=== PATIENT | female | born 1970 | race Caucasian/White ===

== ENCOUNTER 2018-09-25 16:32 | Emergency (ER) | payer MEDICAID ==
[2018-09-25] MEDS ORDERED: Ondansetron 4 MG Tab.DIS PO ONE (16:33)
--- NOTE | 2018-09-25 17:28 | EDM.PDOC ---
ED HPI GENERAL MEDICAL PROBLEM - General Chief Complaint: Abdominal Pain Stated Complaint: STOMACH ISSUES Time Seen by Provider: 09/25/18 16:32 Source of Information: Reports: Patient, Family History Limitations: Reports: No Limitations - History of Present Illness INITIAL COMMENTS - FREE TEXT/NARRATIVE: 48 y.o.w.f with a h/o appendectomy, Hysterectomy, Cholecystectomy, came to the ed with gen abd. pain. No N/V. No trauma. BP 155/100 RR 18 Pulse ox 100% Temp 36.8 Pulse 115 Onset Date: 09/16/18 Onset Time: 08:00 Duration: Day(s):, Getting Worse, Intermittent Location: Reports: Abdomen Quality: Reports: Burning, Dull, Pressure Severity: Moderate Improves with: Reports: None Worsens with: Reports: None Context: Reports: Other (multiple abd. surgeries) Associated Symptoms: Reports: No Other Symptoms Abdomen Pain Score (Numeric/FACES): 7 - Related Data Allergies Allergy/AdvReac Type Severity Reaction Status Date / Time amoxicillin Allergy Rash Verified 09/25/18 18:38 Home Meds: Home Meds Fluticasone/Salmeterol [Advair 250-50] 1 puff INH BID 08/16/14 [History] Follett Carbonate 300 mg PO BID 08/16/14 [History] Losartan/Hydrochlorothiazide [Losartan-HCTZ 100-25 MG] 1 each PO DAILY 08/16/14 [History] Omeprazole 40 mg PO DAILY 08/16/14 [History] predniSONE [Prednisone] 10 mg PO DAILY 08/16/14 [History] tiZANidine HCl [Tizanidine HCl] 4 mg PO BEDTIME PRN 08/16/14 [History] Isosorbide Mononitrate [Imdur] 30 mg PO DAILY #30 tab.er 08/17/14 [Rx] Metoprolol Succinate [Toprol XL] 25 mg PO DAILY #30 tab.sr.24h 08/17/14 [Rx] Nitroglycerin [Nitrostat] 0.4 mg SL Q5M PRN #20 tab.sl 08/17/14 [Rx] ED ROS GENERAL - Review of Systems Review Of Systems: See Below Constitutional: Reports: No Symptoms HEENT: Reports: No Symptoms Respiratory: Reports: No Symptoms Cardiovascular: Reports: No Symptoms Endocrine: Reports: No Symptoms GI/Abdominal: Reports: Abdominal Pain : Reports: Dysuria Musculoskeletal: Reports: No Symptoms Skin: Reports: No Symptoms Neurological: Reports: No Symptoms Psychiatric: Reports: No Symptoms Hematologic/Lymphatic: Reports: No Symptoms Immunologic: Reports: No Symptoms ED EXAM, GI/ABD - Physical Exam Exam: See Below Exam Limited By: No Limitations General Appearance: Alert, WD/WN, Mild Distress, Obese Eyes: Bilateral: Normal Appearance Ears: Normal External Exam Nose: Normal Inspection Throat/Mouth: Normal Lips, Normal Voice, No Airway Compromise Head: Atraumatic, Normocephalic Neck: Normal Inspection, Supple, Non-Tender, Full Range of Motion Respiratory/Chest: No Respiratory Distress, Lungs Clear, Normal Breath Sounds, No Accessory Muscle Use, Chest Non-Tender Cardiovascular: Normal Peripheral Pulses, Regular Rate, Rhythm, No JVD GI/Abdominal Exam: Tender, Abnormal Bowel Sounds (Female) Exam: Deferred Rectal (Female) Exam: Deferred Back Exam: Normal Inspection, Full Range of Motion Extremities: Normal Inspection, Normal Range of Motion, Non-Tender Neurological: Alert, Oriented, CN II-XII Intact, Normal Cognition, Normal Gait Psychiatric: Normal Affect, Normal Mood Skin Exam: Warm, Dry, Intact, Normal Color, No Rash Lymphatic: No Adenopathy Course - Vital Signs Text/Narrative:: 48 y.o.w.f with a h/o appendectomy, Hysterectomy, Cholecystectomy, came to the ed with gen abd. pain. No N/V. No trauma. BP 155/100 RR 18 Pulse ox 100% Temp 36.8 Pulse 115 PE: Obese 48 y.o.w.f with ab. pain Labs: UA pos for sebastien esterase Imaging: AD F/Upright: NSBGP CT abd. is pending Impression: gen abdominal pain Pt was signed out to Dr. Honeycutt at 7 pm due to shift changes, pending labs and imaging studies Last Recorded V/S: Last Vital Signs Temp 37.4 C 09/25/18 21:26 Pulse 99 09/25/18 21:26 Resp 18 09/25/18 21:26 BP 157/93 H 09/25/18 21:26 Pulse Ox 98 09/25/18 21:26 - Orders/Labs/Meds Orders: Active Orders 24 hr Category Date Time Status Abdomen Pelvis w Cont [CT] Stat Exams 09/25/18 18:32 Taken Labs: Laboratory Tests 09/25/18 09/25/18 09/25/18 Range/Units 17:25 18:40 18:40 WBC 13.3 H (4.5-12.0) X10-3/uL RBC 5.10 (3.23-5.20) x10(6)uL Hgb 15.4 (11.5-15.5) g/dL Hct 45.0 (30.0-51.3) % MCV 88.2 (80-96) fL MCH 30.1 (27.7-33.6) pg MCHC 34.2 (32.2-35.4) g/dL RDW 13.0 (11.5-15.5) % Plt Count 157 (125-369) X10(3)uL MPV 8.9 (7.4-10.4) fL Neut % (Auto) 74.5 (46-82) % Lymph % (Auto) 20.6 (13-37) % Spink % (Auto) 4.2 (4-12) % Eos % (Auto) 0 L (1.0-5.0) % Baso % (Auto) 0 (0-2) % Neut # (Auto) 9.9 H (1.6-8.3) # Lymph # (Auto) 2.7 (0.6-5.0) # Spink # (Auto) 0.6 (0.0-1.3) # Eos # (Auto) 0.1 (0.0-0.8) # Baso # (Auto) 0.0 (0.0-0.2) # Sodium 137 (135-145) mmol/L Potassium 3.5 (3.5-5.3) mmol/L Chloride 101 (100-110) mmol/L Carbon Dioxide 27 (21-32) mmol/L BUN 10 (7-18) mg/dL Creatinine 0.9 (0.55-1.02) mg/dL Est Cr Clr Drug Dosing TNP Estimated GFR (MDRD) > 60 (>60) BUN/Creatinine Ratio 11.1 (9-20) Glucose 105 (80-116) mg/dL Calcium 9.3 (8.6-10.2) mg/dL Urine Color Yellow (YELLOW) Urine Appearance Clear (CLEAR) Urine pH 5.0 (5.0-6.5) Ur Specific Rogers 1.020 (1.010-1.025) Urine Protein Trace (NEGATIVE) mg/dL Urine Glucose (UA) Normal (NEGATIVE) mg/dL Urine Ketones 15 H (NEGATIVE) mg/dL Urine Occult Blood Moderate H (NEGATIVE) Urine Nitrite Negative (NEGATIVE) Urine Bilirubin Small H (NEGATIVE) Urine Urobilinogen 1 H (NEGATIVE) mg/dL Ur Leukocyte Esterase Small H (NEGATIVE) Urine RBC 0-5 (0) Urine WBC 0-5 (0) Ur Squamous Epith Cells Few H (NS,R,O) Urine Bacteria Moderate H (NS) Urine Mucus Few H (NS) Meds: Medications Discontinued Medications Generic Name Dose Route Start Last Admin Trade Name Freq PRN Reason Stop Dose Admin Diatrizoate Meglum/Diatrizoate Sod 30 ml 09/25/18 20:30 09/25/18 20:36 Gastrografin 37% PO 30 ml . DIRECTED SARITA Administration Iopamidol 118 ml 09/25/18 20:28 09/25/18 20:36 Isovue-370 (76%) IV 09/25/18 20:29 118 ml ONETIME ONE Administration Ketorolac Tromethamine 30 mg 09/25/18 21:09 09/25/18 21:12 Toradol IVPUSH 09/25/18 21:10 30 mg ONETIME ONE Administration Ondansetron HCl 4 mg 09/25/18 21:15 09/25/18 21:13 Zofran IVPUSH 4 mg Q8H SARITA Administration Sodium Chloride 10 ml 09/25/18 19:20 09/25/18 21:14 Saline Flush FLUSH 10 ml ASDIRECTED PRN Administration IV Use Departure - Departure Time of Disposition: 21:00 Disposition: Home, Self-Care 01 Condition: Good Clinical Impression: Colitis - Discharge Information Instructions: Colitis Referrals: PCP,None [Primary Care Provider] - (tomorrow) Forms: ED Department Discharge Additional Instructions: Use Zofran one tab (4 mg) as needed three times a day. See Dr Crawford.Discuss Colonoscopy if needed. - My Orders Last 24 Hours: My Active Orders 09/25/18 18:32 Abdomen Pelvis w Cont [CT] Stat - Assessment/Plan Last 24 Hours: My Active Orders 09/25/18 18:32 Abdomen Pelvis w Cont [CT] Stat
[2018-09-25] MEDS: Sodium Chloride 0.9% 10 ML Syringe FLUSH PRN ×2 (19:20→21:14)
[2018-09-25] MEDS ORDERED: Iopamidol 755 MG/ML 150 ML Bottle IV ONE (20:28)
[2018-09-25] MEDS ORDERED: Diatrizoate Meglumine/Diatrizoate Sodium 37% 30 ML Bottle PO SCH (20:30)
[2018-09-25] MEDS ORDERED: Ketorolac 30 MG/ML SDV IVPUSH ONE (21:09)
[2018-09-25] MEDS ORDERED: Ondansetron 4 MG/2 ML SDV IVPUSH SCH (21:15)
[2018-09-25 21:31] VITALS: BP 157/93
--- NOTE | 2018-09-26 03:14 | ER ---
DATE SEEN: 09/25/2018 REASON FOR VISIT: Abdominal pain. HISTORY OF PRESENT ILLNESS: This is a 48-year-old female who was seen by Dr. Gamboa because of abdominal pain. I am taking over shift and I spoke with her and she complains of pain nonspecific, mostly in the lower abdomen over a week or so, associated with nausea and diarrhea. No fever. This has happened previously, which was thought to be the flu. She also has noted some blood in the stool. MEDICATIONS: Reviewed. ALLERGIES: Reviewed. PAST MEDICAL HISTORY: Atypical chest pain, hypertension, obesity, and cholecystectomy. PHYSICAL EXAMINATION: GENERAL: She is well hydrated. VITAL SIGNS: Her blood pressure is 156/94, pulse is 96, and temperature 98.9. Abdomen: Distended, bloated, diffusely tender in the suprapubic and both lower quadrants, but no rebound, no rigidity. Bowel sounds are present. LABORATORY DATA: White cell count 13.3. Urine and CMP were unremarkable. IMAGING STUDIES: CT of abdomen and pelvis showed some nonspecific colitis. IMPRESSION: Nonspecific colitis. TREATMENT: Ketorolac and Zofran and continue with Zofran at home. Advised to see Dr. Crawford later this week. Return to the ED with any worsening symptoms. /[id number] MAHNAZ/NAMAN
--- NOTE | 2018-09-26 10:31 | CR ---
INDICATION: Abdomen pain. ABDOMEN: Four images of the abdomen in supine and upright projections reveal clips in the area of the cystic duct, compatible with cholecystectomy - correlate clinically. The pattern of gas and feces is nonspecific without evidence of free air or obstruction. No organomegaly, mass lesions, or free fluid collections were identified in the abdomen or pelvis. No pathologic calcifications were seen. IMPRESSION: Nonspecific abdomen. MTDD
== END 2018-09-25 21:28 | disposition home or self-care (01) ==
LOC: FB.ED 16:32
DX: K52.9 Noninfective gastroenteritis and colitis, unspecified (principal); I10 Essential (primary) hypertension; F17.210 Nicotine dependence, cigarettes, uncomplicated; Z90.49 Acquired absence of other specified parts of digestive tract; Z88.1 Allergy status to other antibiotic agents; Z79.899 Other long term (current) drug therapy
CPT/HCPCS: 36415; 74019; 74177; 80048; 81001; 85025; 96374; 96375; 99284; A9270; J1885; J2405; Q9963; Q9967

== ENCOUNTER 2020-07-04 08:11 | Day surgery (SDC) | payer MEDICAID ==
[~2020-07-04 08:11] MED LIST: Lactated Ringers 1,000 ML IV SCH; Sodium Chloride 0.9% 10 ML Syringe FLUSH PRN
[2020-07-04] MEDS ORDERED: Ondansetron 4 MG/2 ML SDV IVPUSH ONE (08:12)
[2020-07-04] MEDS ORDERED: Albuterol 8 GM Inhaler INH ONE (08:12)
[2020-07-04] MEDS ORDERED: Lidocaine 2% 5 ML SDV IV ONE (08:12)
[2020-07-04] MEDS ORDERED: Lactated Ringers 1,000 ML IV ONE (08:12)
[2020-07-04] MEDS ORDERED: Succinylcholine 200 MG/10 ML MDV IV ONE (08:12)
[2020-07-04] MEDS ORDERED: Propofol 200 MG/20 ML SDV IV ONE (08:12)
[2020-07-04] MEDS ORDERED: Rocuronium 50 MG/5 ML Vial IVPUSH ONE (08:12)
[2020-07-04] MEDS ORDERED: fentaNYL 100 MCG/2 ML SDV IV ONE (08:12)
[2020-07-04] MEDS ORDERED: Dexamethasone 4 MG/ML SDV IVPUSH ONE (08:12)
[2020-07-04] MEDS ORDERED: Midazolam 1 MG/ML 2 ML SDV IV ONE (08:12)
[2020-07-04] MEDS ORDERED: Glycopyrrolate 0.2 MG/ML 5 ML MDV IV ONE (08:12)
[2020-07-04] MEDS ORDERED: Neostigmine Methylsulfate 10 MG/10 ML MDV IVPUSH ONE (08:12)
[2020-07-04] MEDS ORDERED: ceFAZolin 2 GM in Sodium Chloride 0.9% 100 ML IV ONE (09:15)
[2020-07-04] MEDS ORDERED: ceFAZolin 2 GM in Premix Bag 1 BAG IV ONE (09:15)
[2020-07-04] MEDS ORDERED: Lidocaine 1% with EPINEPHrine 1:100,000 20 ML MDV INJECT ONE ×2 (09:21→09:46)
--- NOTE | 2020-07-04 09:23 | PCM.SN.2 ---
- Free Text/Narrative Note: Pt examined and the chart was reviewed. There is no change to the history or physical.
[2020-07-04] MEDS ORDERED: Bupivacaine 0.5% 30 ML SDV INJECT ONE ×2 (09:46→09:48)
[2020-07-04] MEDS ORDERED: Acetaminophen/HYDROcodone 325-5 MG Tab PO PRN (10:15)
--- NOTE | 2020-07-04 10:23 | PCM.OPNOTE ---
- General Post-Op/Procedure Note Date of Surgery/Procedure: 07/04/20 Operative Procedure(s): incisional hernia repair. with mesh Findings: incisional hernia below umbilicus 2.5 cm defect Pre Op Diagnosis: umbilical/incisional hernia Post-Op Diagnosis: incisional hernia Anesthesia Technique: General ET Tube, Local (8 ml 1 % lido with epi/0.5% buvipicaine) Primary Surgeon: Rex Arias Anesthesia Provider: Xiao Hearn Complications: None Condition: Good Free Text/Narrative:: see dictation [id number]
[2020-07-04 11:28] VITALS: BP 155/89; PULSE 83
--- NOTE | 2020-07-04 14:37 | OR ---
DATE OF OPERATION: 07/04/2020 SURGEON: Rex Arias MD OPERATION PERFORMED: Mesh repair of incisional hernia. PREOPERATIVE DIAGNOSIS: Umbilical/incisional hernia. POSTOPERATIVE DIAGNOSIS: Incisional hernia. INDICATIONS FOR OPERATION: This is a 49-year-old white female who was referred with what appeared to be a periumbilical hernia that may have involved a trocar site from previous surgery. She was offered and accepted repair. INTRAOPERATIVE FINDINGS: There was a 2.5 cm defect with some incarcerated omentum. This was repaired with a Ventralex ST hernia patch, 6.4 cm size, reference #[id number], lot #[id number], with an expiration date of . A total of 8 mL of local mixture of 1% lidocaine with epinephrine and 0.5% bupivacaine was used. DESCRIPTION OF OPERATION: After an excellent IV general anesthetic was administered via endotracheal tube, the patient was prepped and draped in the usual sterile manner. Our local was used to infiltrate the area surrounding the defect. A curvilinear incision was made at the base of the umbilicus. Sharp dissection was carried out, dissecting free the hernia sac, which was entered. The incarcerated omentum was then carefully dissected free and reduced. The hernia, which measured 2.5 cm, had to be opened by an additional centimeter to aid in freeing up the adhesions from the anterior abdominal wall, and once this was done with a combination of sharp and blunt dissection, the hernia patch was inserted. The tails were brought out through the fascial edges, and the fascial defect was closed with a running 0 Prolene, incorporating the mesh as we closed. The tails of the mesh were then excised. The umbilicus did not have to be tacked to the anterior abdominal wall as this defect did not involve the umbilicus. The skin was then closed with robina. The patient was taken to Recovery, having tolerated the procedure well. /[id number] /MODL
== END 2020-07-04 11:42 | disposition home or self-care (01) ==
LOC: FB.SDS 08:11
PROVIDERS: ATTEND Surgery
DX: K43.0 Incisional hernia with obstruction, without gangrene (principal); E78.5 Hyperlipidemia, unspecified; I10 Essential (primary) hypertension; F17.210 Nicotine dependence, cigarettes, uncomplicated; G47.30 Sleep apnea, unspecified; E66.01 Morbid (severe) obesity due to excess calories; Z98.890 Other specified postprocedural states; Z88.0 Allergy status to penicillin; Z88.1 Allergy status to other antibiotic agents; Z88.8 Allergy status to other drugs, medicaments and biological substances; Z79.899 Other long term (current) drug therapy; Z90.49 Acquired absence of other specified parts of digestive tract; Z68.41 Body mass index [BMI] 40.0-44.9, adult; Z01.812 Encounter for preprocedural laboratory examination; Z20.828 Contact with and (suspected) exposure to other viral communicable diseases
CPT/HCPCS: 00750; 36415; 49561; 49568; 84132; 87635; 94150; A9270; C1781; J0330; J0690; J1100; J2001; J2250; J2405; J2704; J2710; J3010; J3490; J7120; U0002